=== PATIENT | female | born 1990 | race Caucasian/White ===

== ENCOUNTER → 2017-03-23 | Outpatient (CLI) | payer MEDICAID | LOC: FIMAGING 09:50 | PROVIDERS: ATTEND Midwife | DX: O26.01 Excessive weight gain in pregnancy, first trimester (principal); Z3A.19 19 weeks gestation of pregnancy ==

== ENCOUNTER 2017-08-13 01:45 | Observation (INO) | payer MEDICAID | END 2017-08-13 04:11 | disposition home or self-care (01) | LOC: FLD 01:45 | PROVIDERS: ADMIT Obstetrics & Gynecology; ATTEND Obstetrics & Gynecology | DX: O47.1 False labor at or after 37 completed weeks of gestation (principal); Z3A.39 39 weeks gestation of pregnancy | CPT/HCPCS: G0378 ×2 ==

== ENCOUNTER 2017-08-13 16:52 | Inpatient (IN) | payer MEDICAID ==
[2017-08-13] MEDS ORDERED: IBUPROFEN 600 MG TAB PO PRN (19:12)
[2017-08-13] MEDS ORDERED: MISOPROSTOL 200 MCG TAB PO PRN (19:12)
[2017-08-13] MEDS ORDERED: OXYTOCIN/RINGERS LACTATE 1,000 ML IV PRN (19:12)
[2017-08-13] MEDS ORDERED: OLIVE OIL 118 ML BTL MISC PRN (19:12)
[2017-08-13] MEDS ORDERED: LR 1,000 ML IV PRN (19:12)
[2017-08-13] MEDS ORDERED: AMMONIA AROMATIC 1 EACH AMP IH PRN (19:12)
[2017-08-13] MEDS ORDERED: TERBUTALINE SULFATE 1 MG/ML VIAL IV PRN (19:12)
[2017-08-13] MEDS ORDERED: LIDOCAINE 1% 300 MG/30 ML SDV SC PRN (19:12)
[2017-08-13] MEDS ORDERED: AMPICILLIN SODIUM 2 GM in NS 100 ML IV ONE (19:12)
[2017-08-13] MEDS ORDERED: EPSOM SALT 454 GM TP PRN (19:12)
[2017-08-13] MEDS ORDERED: LIDOCAINE 1% 300 MG/30 ML SDV ONE (19:46)
[2017-08-13] MEDS ORDERED: AMMONIA AROMATIC 1 EACH AMP IH ONE (19:47)
[2017-08-13] MEDS ORDERED: TERBUTALINE SULFATE 1 MG/ML VIAL ONE (19:47)
[2017-08-13] MEDS ORDERED: OXYTOCIN 10 UNIT/ML VIAL ONE (19:47)
[2017-08-13] MEDS ORDERED: MISOPROSTOL 200 MCG TAB ONE (19:47)
[2017-08-13] MEDS ORDERED: OLIVE OIL 118 ML BTL ONE (19:47)
[2017-08-13 20:10] LABS: PLATELET COUNT 249 10^3/uL (150-400)
[2017-08-13] MEDS ORDERED: HYDROCORTISONE 0.5% CREAM TP PRN (22:03)
[2017-08-13] MEDS ORDERED: SIMETHICONE 80 MG TAB CHEW PO PRN (22:03)
[2017-08-13] MEDS ORDERED: HYDROCODONE/APAP 5/325 TAB PO PRN (22:03)
--- NOTE | 2017-08-13 22:47 | GHP ---
[f rep st] PREOP HISTORY AND PHYSICAL DATE OF ADMISSION: 08/13/2017 ADMISSION DIAGNOSES: 1. Intrauterine at 39 and 4/7 weeks gestation. 2. Active labor. INDICATIONS: Patient is a 27-year-old 3, para 1, who is 39 and 4/7 weeks gestation. Her est imated date of confinement is 08/16/2017, dated by last menstrual period, consistent with an 8-week u ltrasound. Patient received care with [facility]; however, had always planned t o deliver at [facility], so she presented here. She came in last night for a labor c heck and was found to be not in labor and was sent home. She arrived to Labor and Delivery this even ing and was 3 cm dilated and rapidly progressed to 7 cm and then had spontaneous rupture of membranes and rapidly progressed to complete and had a spontaneous vaginal delivery, which was uncomplicated. MEDICAL HISTORY: Negative. MEDICATIONS: vitamins and Valtrex. Of note, neither patient, nor her have any pers onal history of HSV, either genital or oral. She was advised by her provider that there has been a r ecent outbreak of herpes among babies, and so, they are starting all their patients on acyclovir. SURGICAL HISTORY: None. ALLERGIES: No known drug allergies. SOCIAL HISTORY: Patient is engaged. She denies tobacco or drug use. She does drink alcohol while n ot . FAMILY MEDICAL HISTORY: Noncontributory. PLASTER WHITTLER HISTORY: She has a history of regular cycles. She is a 3, para 1-0-1-1. She has a h istory of a voluntary termination of . She has a history of a spontaneous vaginal delivery at 39 weeks, delivered by Dr. Chino Pedro at [facility]. That was unc omplicated. Current has been monitored for increased surveillance due to questionable club foot, and she had an echogenic foci, for which she had an echocardiogram of the baby's heart, which w as normal. Patient denies any history of any abnormal Pap smears or sexually transmitted diseases. REVIEW OF SYSTEMS: A 10-point review of systems was negative with the exception of the above-mention ed pertinent positives. Positive movement. No loss of fluid prior to arrival. No vaginal ble eding. She was having strong regular contractions. She denied any headache or changes in vision. PHYSICAL EXAM: VITAL SIGNS: Stable. GENERAL APPEARANCE: She is alert and oriented x3 but uncomfor table. PSYCH: Appropriate affect. MUSCULOSKELETAL: Grossly intact. NEUROMUSCULAR: Grossly intac t. NECK: Mobile and supple. HEART: Irregularly irregular. LUNGS: Clear to auscultation bilatera lly. ABDOMEN: Gravid, nondistended, nontender. EXTREMITIES: Reveal no calf tenderness or edema. CERVICAL EXAM: On arrival was 3 cm dilated, 50% effaced, and -2 station. heart tracing was ca tegory I. Infant was in the vertex presentation. She was having regular contractions. LABS: Blood type O positive. Antibody screen negative. Rubella immune. GBS positive. HB sAg negative. HIV negative. In the comments of labs, it shows that HSV was positive, but HSV2 was n egative. ASSESSMENT AND PLAN: A 27-year-old 3, para 1-0-1-1, who was 39 weeks and 4 days, who present ed in active labor. The patient was given 1 dose of antibiotics for group beta strep-positive status and had a rapid spontaneous vaginal delivery. /[id number]/MODL
--- NOTE | 2017-08-13 22:58 | OBDEL ---
Info Type: Vaginal Presentation at Delivery: Vertex L&D Analgesia/Anesthesia Type: Nitrous GBS+: Yes Antibiotic Used for + GBS: Ampicillin (x1 dose) Intrapartum Medications: Discontinued Medications Generic Name Dose Route Start Last Admin Trade Name Freq PRN Reason Stop Dose Admin Ampicillin Sodium 2 gm/ Sodium 110 mls @ 220 mls/hr 08/13/17 19:12 08/13/17 20:00 Chloride IV 08/13/17 19:41 110 mls ONCE ONE Administration Protocol Ibuprofen 600 mg 08/13/17 19:12 08/13/17 21:12 Motrin PO 600 mg ONCE PRN Administration post , pain - Care Provider Director Translational/GEOGRAPHICAL HISTORIAN: Lola Chandler - Hospital Course Intrapartum: 08/13/17 22:55 arrived and was 3 cm. rapid progress to 7 then complete. srom. thing meconium stained fluid Indications for Delivery: Spontaneous Labor Vaginal Delivery - Delivery Provider Delivery Physician/CNM: Chastity Shah - Labor and Delivery Onset of Contractions Date: 08/13/17 Onset of Contractions Time: 14:30 Onset of Contractions Type: Spontaneous Rupture of Membranes Date: 08/13/17 Rupture of Membranes Time: 20:18 Rupture of Membranes Type: Spontaneous Amniotic Fluid Color: Meconium Stained Dilation Complete Date: 08/13/17 Dilation Complete Time: 20:21 Placenta Delivery Date: 08/13/17 Placenta Delivery Time: 20:33 Total Hours of Labor: 6 Laceration: 1st Degree Repair: 3-0 Vaginal Sponge Count Correct: Yes Vaginal Needle Count Correct: Yes EBL: 100 Delivery Events: None Data ROBBIE: 08/16/17 Gestational Age: 39 week(s) and 4 day(s) Uribe Delivery Date: 08/13/17 Delivery Time: 20:28 Sex of Infant: Male Score (1 Min): 8 Score (5 Min): 9 ICD10 Worksheet Patient Problems: Problems Problem Status Onset Labor established Acute
[2017-08-13] MEDS ORDERED: AMPICILLIN SODIUM 1 GM in NS 100 ML IV SCH (23:13)
[2017-08-13] MEDS: ACETAMINOPHEN 325 MG TAB PO SCH (23:51)
[2017-08-14] MEDS: IBUPROFEN 600 MG TAB PO SCH ×4 (03:16→22:31)
[2017-08-14] MEDS: ACETAMINOPHEN 325 MG TAB PO SCH ×3 (05:48→18:25)
[2017-08-14] MEDS: DOCUSATE SODIUM 100 MG CAP PO PRN (09:23)
--- NOTE | 2017-08-14 09:36 | OBPP ---
Progress Note Assessment/Plan: Assessment: 27 y/o PPD #1 s/p doing well. Plan: support and routine ppc today. D.c home tomorrow. 08/14/17 09:35 Subjective/ Course: 08/14/17 09:33 Pt is doing well this am. She feels much better after this delivery compared to the last one. She has min lochia, is ambulating and voiding without difficulty and has good pain control with Ibuprofen. Breast feeding is going well and baby is doing well. Objective: 08/13/17 19:51 Patient ABO/Rh O POSITIVE 08/13/17 19:51 Temp Pulse Resp BP Pulse Ox 36.9 C 73 16 108/63 91 L 08/14/17 08:00 08/14/17 08:00 08/14/17 08:00 08/14/17 08:00 08/13/17 23:54 Uterine Position/Fundal Height: Umbilicus -2 Uterine Tone: Firm Physical Exam - Physical Exam General Appearance: alert, no apparent distress Neck: non-tender, full range of motion, supple Respiratory: chest non-tender, lungs clear, normal breath sounds Cardiac/Chest: regular rate, rhythm Abdomen: normal bowel sounds Extremities: swelling (no), Anthony's sign (neg)
[2017-08-15] MEDS: IBUPROFEN 600 MG TAB PO SCH ×4 (04:29→23:02)
[2017-08-15] MEDS: ACETAMINOPHEN 325 MG TAB PO SCH ×4 (06:00→19:15)
[2017-08-15] MEDS: DOCUSATE SODIUM 100 MG CAP PO PRN (10:53)
--- NOTE | 2017-08-15 12:06 | OBPP ---
Progress Note Assessment/Plan: Assessment: PPD2 s/p . Routine cares - good for dc home tomorrow. DORINA Subjective/ Course: 08/14/17 09:33 Pt is doing well this am. She feels much better after this delivery compared to the last one. She has min lochia, is ambulating and voiding without difficulty and has good pain control with Ibuprofen. Breast feeding is going well and baby is doing well. 08/15/17 15:45 Feeling great this AM - pain well controlled, tolerating diet, minimal bleeding. Peds would like baby to stay until tomorrow for obs due to GBS positive with inadequate abx treatment. Objective: 08/13/17 19:51 Patient ABO/Rh O POSITIVE 08/13/17 19:51 Temp Pulse Resp BP Pulse Ox 36.3 C 68 18 113/79 96 08/15/17 08:00 08/15/17 08:00 08/15/17 08:00 08/15/17 08:00 08/15/17 08:00 Uterine Position/Fundal Height: At Umbilicus Uterine Tone: Firm
[2017-08-16] MEDS: ACETAMINOPHEN 325 MG TAB PO SCH ×2 (00:05→14:56)
[2017-08-16] MEDS: IBUPROFEN 600 MG TAB PO SCH ×2 (05:00→12:15)
[2017-08-16 09:58] VITALS: BP 124/76
--- NOTE | 2017-08-16 12:00 | OBPP ---
Progress Note Assessment/Plan: Assessment: 27 y/o PPD #2.5 s/p doing well. Plan: D/c home today with Rx Ibuprofen and follow up @ [facility] 4 and 6 weeks. 08/14/17 09:35 08/16/17 12:00 Subjective/ Course: 08/14/17 09:33 Pt is doing well this am. She feels much better after this delivery compared to the last one. She has min lochia, is ambulating and voiding without difficulty and has good pain control with Ibuprofen. Breast feeding is going well and baby is doing well. 08/15/17 15:45 Feeling great this AM - pain well controlled, tolerating diet, minimal bleeding. Peds would like baby to stay until tomorrow for obs due to GBS positive with inadequate abx treatment. 08/16/17 11:58 Pt is doing well. She has good pain control on Ibuprofen. She is ambulating and voiding without difficulty. Breast feeding is going well and her milk is coming in. They are ready to d./c home. Objective: 08/13/17 19:51 Patient ABO/Rh O POSITIVE 08/13/17 19:51 Temp Pulse Resp BP Pulse Ox 36.3 C 70 16 124/76 H 96 08/16/17 09:57 08/16/17 09:57 08/16/17 09:57 08/16/17 09:57 08/15/17 20:00 Uterine Position/Fundal Height: Umbilicus -2 Uterine Tone: Firm Physical Exam - Physical Exam General Appearance: alert, no apparent distress Neck: non-tender, full range of motion, supple Respiratory: chest non-tender, lungs clear, normal breath sounds Cardiac/Chest: regular rate, rhythm Abdomen: normal bowel sounds Extremities: swelling (no), Anthony's sign (neg)
--- NOTE | 2017-08-16 12:02 | OBGCSDC ---
General Delivery Information - General Info : 3 Para: 2 Abortions: 1 Type: Vaginal L&D Analgesia/Anesthesia Type: None Admission Date: 08/14/17 Labs: Patient ABO/Rh O POSITIVE 08/13/17 19:51 Hct 42.2 % (38.0-47.0) 08/13/17 19:51 - Hospital Course Antepartum: 08/16/17 12:01 Pre care @ [facility] [place]. Intrapartum: 08/13/17 22:55 arrived and was 3 cm. rapid progress to 7 then complete. srom. thing meconium stained fluid : 08/14/17 09:33 Pt is doing well this am. She feels much better after this delivery compared to the last one. She has min lochia, is ambulating and voiding without difficulty and has good pain control with Ibuprofen. Breast feeding is going well and baby is doing well. 08/15/17 15:45 Feeling great this AM - pain well controlled, tolerating diet, minimal bleeding. Peds would like baby to stay until tomorrow for obs due to GBS positive with inadequate abx treatment. 08/16/17 11:58 Pt is doing well. She has good pain control on Ibuprofen. She is ambulating and voiding without difficulty. Breast feeding is going well and her milk is coming in. They are ready to d./c home. Vaginal - Delivery Provider Delivery Physician/CNM: Chastity Shah - Diagnosis Labor: Spontaneous Rupture of Membranes Type: Spontaneous Amniotic Fluid Color: Meconium Stained Laceration: 1st Degree Repair: 3-0 Delivery Events: None - Delivery EBL: 100 Garrett Data ROBBIE: 08/16/17 Gestational Age: 40 week(s) and 0 day(s) Uribe Delivery Date: 08/13/17 Delivery Time: 20:28 Sex of Infant: Male Garrett Weight (gm): 3546 kg Score (1 Min): 8 Score (5 Min): 9 Discharge Information - Discharge Information Prescriptions: Ibuprofen [Motrin (*)] 600 mg PO Q6H #30 tab Condition: Good Instruction/Follow Up: Four Weeks, Six Weeks
== END 2017-08-16 12:30 | disposition home or self-care (01) | DRG 560 ==
LOC: FLD 16:52 → FOB 22:41 → OBSVTOIN 08-14 09:02
PROVIDERS: ADMIT Obstetrics & Gynecology; ATTEND Obstetrics & Gynecology
PROC: 3E03329 Introduction of Other Anti-infective into Peripheral Vein, Percutaneous Approach (ICD-10-PCS; principal; 2017-08-14)
PROC: 10E0XZZ Delivery of Products of Conception, External Approach (ICD-10-PCS; principal; 2017-08-14)
PROC: 0HQ9XZZ Repair Perineum Skin, External Approach (ICD-10-PCS; principal; 2017-08-14)
DX: O77.0 Labor and delivery complicated by meconium in amniotic fluid (principal); O70.0 First degree perineal laceration during delivery; O99.824 Streptococcus B carrier state complicating childbirth; Z3A.39 39 weeks gestation of pregnancy; Z37.0 Single live birth
CPT/HCPCS: G0378; J0290; J2590; J3105